=== PATIENT | female | born 1960 | race African-American/Black ===

== ENCOUNTER 2022-12-26 10:32 | Outpatient (CLI) | payer OTHER, SELFPAY | END 2022-12-26 10:33 | disposition home or self-care (01) | LOC: ANHAUDIO 10:33 | PROVIDERS: Visit Provider Otolaryngology | DX: H93.11 Tinnitus, right ear (principal); H90.3 Sensorineural hearing loss, bilateral | CPT/HCPCS: 92557; 92567 ==